=== PATIENT | male | born 1955 | race Hispanic/Latino ===

== ENCOUNTER → 2023-12-17 | Outpatient (REF) | payer MEDICARE ==
[~2023-12-17] MED LIST: ATORVASTATIN CA20 MG PO; FARXIGA5 MG; HYDROCODON-ACE1 EA12 PO; MELOXICAM15 MG PO; METFORMIN HCL500 MG PO; NEURONTIN100 MG PO; SOLIQUA 100 UNIT3 ML SQ; TIZANIDINE HCL4 M1 PO; ZESTRIL40 MG PO; ZETIA10 MG PO
== END ==
LOC: RAD 09:53
PROVIDERS: ATTEND Neurological Surgery
DX: M50.20 Other cervical disc displacement, unspecified cervical region (principal); M43.22 Fusion of spine, cervical region
CPT/HCPCS: 72050

== ENCOUNTER → 2024-11-29 | Day surgery (SDC) | payer MEDICARE ==
[2024-11-24 11:36] LABS: BASOPHILS % 0.7 % (0.0-1.0); EOSINOPHILS % 2.8 % (0.0-6.0); LYMPHOCYTES % 20.8 % (18.0-39.1); MONOCYTES % 8.3 % (4.4-11.3); NEUTROPHILS % 66.6 % (38.7-80.0); RED CELL DISTRIBUTION WIDTH 11.8 % (11.7-14.4)
[2024-11-24 16:23] LABS: EST GLOMERULAR FILTRATION RATE 86.0 ML/MIN (>=60)
[~2024-11-29] MED LIST changes: +ACETAMINOPHEN-1 EAC4 PO; +DEXAMETHASONE SOD PHOS INJ 4 MG/ML SDV ONE; -FARXIGA5 MG; +FARXIGA5 MG PO; +FENTANYL CITRATE/PF 100MCG/2 ML INJ ONE; +KETOROLAC TROMETHAMINE 30 MG/ML VIAL ONE; +LIDOCAINE HCL 2% LOCAL INJ 5 ML SDV VIAL INJ ONE; +MIDAZOLAM HCL 2 MG/2 ML VIAL ONE; +ONDANSETRON HCL INJ 2MG/ML 2ML 2 MG/ML VIAL ONE; +PROPOFOL IV EMULSION 50 ML IV ONE
[2024-11-29] MEDS: CLINDAMYCIN 600MG / 50ML 50 ML IV ONE (06:10)
[2024-11-29] MEDS: LACTATED RINGER'S 1,000 ML ONE (06:11)
[2024-11-29] MEDS: DEXTROSE 5% 250ML 0 ML IV ONE (06:11)
[2024-11-29 08:28] VITALS: BP 121/67; PULSE 62; RESP 17; O2SAT 97
== END | disposition home or self-care (01) ==
LOC: OR 05:19
PROVIDERS: ATTEND Plastic Surgery
DX: G56.01 Carpal tunnel syndrome, right upper limb (principal); M65.821 Other synovitis and tenosynovitis, right upper arm; I10 Essential (primary) hypertension; E11.9 Type 2 diabetes mellitus without complications; Z01.810 Encounter for preprocedural cardiovascular examination; Z01.812 Encounter for preprocedural laboratory examination; Z88.0 Allergy status to penicillin; Z79.84 Long term (current) use of oral hypoglycemic drugs; Z79.4 Long term (current) use of insulin
CPT/HCPCS: 25115; 36415 ×2; 64721; 71046; 80048; 82948; 85025; 93005; J1100; J1885; J2003; J2250; J2405; J2704; J3010; J7121